=== PATIENT | male | born 1990 | race Caucasian/White ===

== ENCOUNTER 2018-05-07 22:17 | Emergency (ER) | payer OTHER ==
[~2018-05-07] VITALS: Ht 170.2 cm; Wt 69.3 kg
[~2018-05-07 22:17] MED LIST: CLONAZEPAM; CYMBALTA; XANAX1 MG PO
[2018-05-08 01:45] VITALS: BP 118/80
== END 2018-05-08 01:58 | disposition home or self-care (01) ==
LOC: EME 22:17
DX: N48.30 Priapism, unspecified (principal); F32.9 Major depressive disorder, single episode, unspecified; F41.9 Anxiety disorder, unspecified; G47.30 Sleep apnea, unspecified
CPT/HCPCS: 99281; 99284